=== PATIENT | male | born 1930 | race Caucasian/White ===

== ENCOUNTER → 2020-02-20 | Outpatient (CLI) | payer OTHER ==
[~2020-02-20] MED LIST: ALPRazolam 1MG TAB ONE; GADOTERATE 7.5 MMOL/15 ML SYR ONE
== END | disposition home or self-care (01) ==
LOC: RAD 12:06
PROVIDERS: ATTEND Student in an Organized Health Care Education/Training Program
DX: G31.9 Degenerative disease of nervous system, unspecified (principal); R25.9 Unspecified abnormal involuntary movements
CPT/HCPCS: 70553; A9575